=== PATIENT | male | born 1965 | race Caucasian/White ===

== ENCOUNTER → 2018-05-11 | Outpatient (CLI) | payer OTHER ==
--- NOTE | 2018-05-09 11:52 | DIAGNOSTIC IMAGING REPORT ---
KNEES, STANDING AP CLINICAL HISTORY: B/L KNEE PAIN pain COMPARISON: 04/30/2012 DISCUSSION: Interval anterior cruciate ligament repair changes on the left. Major joint spaces are well-preserved. Medial and lateral joint compartments are intact. There is no evidence for soft tissue swelling. IMPRESSION: Anatomic alignment post anterior cruciate ligament repair left knee. The above report was generated using voice recognition software. It may contain grammatical, syntax or spelling errors. Electronically signed by: Bruce Garcia M.D. 05/09/2018 11:51 AM Dictated Date/Time: 05/09/2018 11:50 AM
[~2018-05-11] MED LIST: MULT-513 PO
== END | disposition home or self-care (01) ==
LOC: C.RDSM 10:40
PROVIDERS: ATTEND Physician Assistant
DX: M25.561 Pain in right knee (principal)